=== PATIENT | female | born 1960 | race African-American/Black ===

== ENCOUNTER 2018-10-13 06:57 | Emergency (ER) | payer BC, OTHER ==
[~2018-10-13] VITALS: Ht 160 cm; Wt 68.0 kg
[~2018-10-13 06:57] MED LIST: FIORICET
[2018-10-13 07:04] VITALS: BP_SYST 122
--- NOTE | 2018-10-13 07:04 | NUR ---
Patient to [facility] [address] [facility] for evaluation. Side rails up. Report given to SINA Negrete. Addendum: 10/13/18 at 0711 by DARBY Report given to SINA May.
--- NOTE | 2018-10-13 07:10 | NUR ---
Patient presented to ER with c/o itchy bug bites bilat hands feet, neck & back. Patient states A&Ox4, ambulatory to ER, afebrile, red rash noted to bilat wrists, anterior neck and back. denies N/V/D, pain 11/29. Patient states bug bites appeared yesterday & she has taken OTC Benadryl for itch, Patient states health hx includes double mastectomy & brain sx.
--- NOTE | 2018-10-13 07:14 | NUR ---
ER Dr. Cochran at bedside examining patient.
[2018-10-13 07:15] VITALS: BP_SYST 122
--- NOTE | 2018-10-13 07:25 | NUR ---
Patient given written and verbal discharge instructions and verbalizes understanding. ER MD discussed with patient the results and treatment provided. Patient in stable condition. ID arm band removed. Rx of given. Patient educated on pain management and to follow up with PMD. Pain Scale 10/10 tolerable for patient . Opportunity for questions provided and answered. Medication side effect fact sheet provided.
== END 2018-10-13 07:15 | disposition home or self-care (01) ==
LOC: SED 06:57
DX: R21 Rash and other nonspecific skin eruption (principal); L29.9 Pruritus, unspecified; R03.0 Elevated blood-pressure reading, without diagnosis of hypertension; Z88.5 Allergy status to narcotic agent; Z85.3 Personal history of malignant neoplasm of breast; Z85.841 Personal history of malignant neoplasm of brain
CPT/HCPCS: 99281

== ENCOUNTER 2019-02-13 10:57 | Emergency (ER) | payer BC, OTHER ==
[~2019-02-13] VITALS: Ht 160 cm; Wt 68.0 kg
[2019-02-13 11:17] VITALS: BP_SYST 131
--- NOTE | 2019-02-13 11:45 | NUR ---
Patient to ER bed 6 to gown for evaluation. Side rails up. Report given to SINA Negrete.
--- NOTE | 2019-02-13 11:55 | NUR ---
pt arrives from home w/ c/o N/D x 3 days. Pt is currently afebrile and is able to tolerated fluids.
--- NOTE | 2019-02-13 12:00 | NUR ---
ER at bedside examining patient.
[2019-02-13 12:24] LABS: HEMATOCRIT 37.3 % (36-48); HEMOGLOBIN 12.2 g/dL (12.0-16.0); MEAN CORPUSCULAR HEMOGLOBIN 26 pg (27-31); MEAN CORPUSCULAR HGB CONC 33 % (32-36); MEAN CORPUSCULAR VOLUME 80 fL (79.0-98.0); PLATELET COUNT (AUTO) 304 K/uL (130-430); RED BLOOD CELL COUNT(AUTO) 4.65 MIL/uL (4.2-6.2); RED CELL DISTRIBUTION WIDTH 13.9 % (9.0-15.0)
[2019-02-13 12:29] LABS: CALCIUM 8.3 mg/dL (8.4-11.0); CREATININE 0.88 mg/dL (0.55-1.30); POTASSIUM 3.1 mmol/L (3.5-5.1)
[2019-02-13 12:31] LABS: WHITE BLOOD COUNT (AUTO) 3.7 K/uL (4.8-10.8)
[2019-02-13 12:34] LABS: ALBUMIN 3.3 g/dL (3.4-4.8); TOTAL BILIRUBIN 0.1 mg/dL (0.0-1.0)
[2019-02-13 12:40] LABS: BILIRUBIN,URINE NEGATIVE (NEGATIVE); BLOOD, URINE 2+ (NEGATIVE); COLOR,URINE YELLOW (YELLOW); GLUCOSE,URINE NEGATIVE (NEGATIVE); KETONES,URINE NEGATIVE (NEGATIVE); LEUKOCYTE ESTERASE ,URINE NEGATIVE (NEGATIVE); NITRITE, URINE POSITIVE (NEGATIVE); PROTEIN URINE NEGATIVE (NEGATIVE); UROBILINOGEN,URINE 0.2 (0.2-1.0)
[2019-02-13 12:46] LABS: CLARITY/URINE SLIGHTLY HAZY (CLEAR)
[2019-02-13 12:58] LABS: BACTERIA,URINE MANY /HPF (None Seen)
[2019-02-13 12:59] LABS: BAND % (MANUAL) 0 % (0-6); LYMPHOCYTES % (MANUAL) 49 % (20-46)
[2019-02-13 13:00] LABS: ATYPICAL LYMPHOCYTES % 0 % (0-0); BASOPHILS % (MANUAL) 0 % (0-2); EOSINOPHILS % (MANUAL) 1 % (0-7); MONOCYTES % (MANUAL) 9 % (0-11)
[2019-02-13] MEDS ORDERED: POTASSIUM CHLORIDE 20 MEQ TAB.PRT.SR PO ONE (13:30)
[2019-02-13] MEDS ORDERED: MAGNESIUM SULFATE 50 ML IV ONE (13:30)
--- NOTE | 2019-02-13 14:15 | NUR ---
medicated the pt w/ Kdur 40mEq and Mag IVBP per Md order.
[2019-02-13] MEDS ORDERED: NACL 0.9% 1,000 ML IV ONE (14:45)
[2019-02-13] MEDS ORDERED: cefTRIAXone 1 GM IVPB PREMIX 50 ML IV ONE (14:45)
[2019-02-13] MEDS ORDERED: ONDANSETRON HCL 4 MG/2 ML VIAL IVP ONE (14:45)
--- NOTE | 2019-02-13 15:00 | NUR ---
# 22 gauge angiocath placed to LAC. Use of asceptic technique. Opsite placed over site. Blood return noted. Blood for lab drawn from site. Flushed with 10 cc of normal saline. No evidence of infiltration noted. Patient tolerated well.
[2019-02-13 16:07] VITALS: BP_SYST 119
--- NOTE | 2019-02-13 16:07 | NUR ---
Patient given written and verbal discharge instructions and verbalizes understanding. ER MD discussed with patient the results and treatment provided. Patient in stable condition. ID arm band removed. IV catheter removed intact and dressing applied, no active bleeding. Rx of Macrobid and Zofran given. Patient educated on pain management and to follow up with PMD. Pain Scale 0/10.Opportunity for questions provided and answered. Medication side effect fact sheet provided.
== END 2019-02-13 16:07 | disposition home or self-care (01) ==
LOC: SED 10:57
DX: N39.0 Urinary tract infection, site not specified (principal); R11.2 Nausea with vomiting, unspecified; R19.7 Diarrhea, unspecified; Z85.841 Personal history of malignant neoplasm of brain; Z85.3 Personal history of malignant neoplasm of breast; Z88.5 Allergy status to narcotic agent
CPT/HCPCS: 36415; 71045; 80053; 81000; 83690; 85007; 85027; 86710; 87086; 96365; 96368; 96375; 99284; J0696; J2405; J3475; J7030